=== PATIENT | female | born 1970 | race Caucasian/White ===

== ENCOUNTER 2017-03-10 03:48 | Emergency (ER) | payer OTHER ==
[~2017-03-10] VITALS: Ht 170.2 cm; Wt 81.8 kg
[2017-03-10 03:49] VITALS: BP 117/76; PULSE 85; RESP 16; O2SAT 98
--- NOTE | 2017-03-10 03:55 | ED.REPORT ---
HPI-Chest Pain 40 and Over Date of Service Mar 10, 2017 ED Provider: Mao Phillips MD Pt is a 46 year old female with a history of HTN and chronic hypokalemia who presents to the ED via EMS complaining of chest pressure onset 02:00 today while she was sleeping. She c/o associated burning sensation, malaise, left shoulder pain with numbness, and belching. Pt denies fever, chills, nausea, and vomiting. She denies a history of cardiac-associated symptoms. Pt reports that she is a non-smoker, drinks occasionally, and that she was at a fair today where she consumed an atypical meal for her including baked potato and meat. The pt states that her symptoms "feel like heartburn." Nursing Notes Stated Complaint: CHEST PAIN Chief Complaint: Chest Pain Nursing Notes Reviewed: Yes Allergies: Uncoded Allergies: PENICILLIN (Allergy, Mild, Rash, 03/10/17) General Time Seen by MD: 03:52 Chief Complaint Chest pressure Hx Obtained From: Patient, EMS Arrived By: Ambulance Sudden in Onset?: No Onset Occurred: 1 - 4 hours ago Symptom Duration: Since onset Location: : Substernal Quality: Pressure Radiation: : Shoulder left Severity: Current: Moderate Severity: Maximum: Moderate Recent Healthcare: No recent doctor visit, No recent hospitalization Similar Sx Previous: No Risk Factors )( CAD Risk Stratification Hypertension Risk factors reviewed )( TAD Risk Stratification Hypertension Risk factors reviewed )( PE Risk Stratification No risk factors HEART Score HEART for MACE: Low index of susp (0), Normal ECG (0), Age 45 - 65 (1), 1-2 CAD risk factors (1) HEART for MACE Score: 0-3 (low risk 0.9%-1.7%) Well's Criteria for PE Well's PE Score: 0-2 pts (low risk 3.6%) Past Medical History Past Medical History Chronic hypokalemia Reports: Hypertension Past Surgical History None reported Smoking History Unknown if Ever Smoker Social History Alcohol Use: "Social" Drug Use: Denies drug use Other Social History: Good social support, Ambulatory Status Independent Review of Systems Constitutional: Reports: Malaise, Denies: Chills, Fever Cardiovascular: Reports: Chest pain GI: Denies: Nausea, Vomiting Musculoskeletal: Reports: Extremity pain, Denies: Back pain, Neck pain Neurologic: Reports: Numbness (left arm) Complete sys rev & neg: except as marked. Physical Exam Initial Vital Signs Vital Signs (First) Date Time Temp Pulse Resp B/P Pulse Ox O2 Delivery O2 Flow Rate FiO2 03/10/17 03:49 36.6 85 16 117/76 98 Room Air Initial VS: Reviewed, Vital signs normal Head / Eyes: Atraumatic, Normocephalic Neck: Supple, Full range of motion Extremities: Vascular intact, Neuro intact Skin: Warm, Dry, No cyanosis Neurologic: Alert, Oriented, Nonfocal Psychiatric: Mood/affect normal, Behavior normal General/Constitutional: Awake, Alert Respiratory / Chest: Atraumatic, Breath sounds NL, Breath sounds = bilat Cardiovascular: Heart rate NL, Regular rhythm Heart Sounds / Murmur: Positive: Murmur present... (II/; left sternal border) No edema. Abdomen: Atraumatic, Soft, Non-tender Interpretation & Diagnostics Lab Results Interpretation Result Diagram: 03/10/17 0359 03/10/17 0359 Test 03/10/17 03:59 White Blood Count 8.9th/mm3 (3.8-10.1) Red Blood Count 4.73mil/mm3 (3.90-5.20) Hemoglobin 14.0g/dL (12.0-15.6) Hematocrit 41.1% (35.0-46.0) Mean Corpuscular Volume 87fL (81-100) Mean Corpuscular Hemoglobin 29.6pg (27.0-35.0) Mean Corpuscular Hemoglobin Concent 34.1% (32.0-37.0) Red Cell Distribution Width 13.0% (12.3-15.4) Platelet Count 414bil/L (150-400) Neutrophils (%) (Auto) 46.2% (40-74) Lymphocytes (%) (Auto) 42.8% (14-46) Monocytes (%) (Auto) 7% (4-12) Eosinophils (%) (Auto) 2.7% (0-5) Basophils (%) (Auto) 1% (0-3) Sodium Level 143mEq/L (134-144) Potassium Level 3.6mEq/L (3.5-5.2) Chloride Level 98mEq/L (97-108) Carbon Dioxide Level 27mmol/L (18-29) Blood Urea Nitrogen 12mg/dL (6-24) Creatinine 0.76mg/dL (0.57-1.00) Estimat Glomerular Filtration Rate 116mL/min (>59) Glucose Level 127mg/dL (60-99) Calcium Level 9.4mg/dL (8.5-10.1) Magnesium Level 1.8mg/dL (1.6-2.6) Total Bilirubin 0.3mg/dL (0.0-1.2) Aspartate Amino Transf (AST/SGOT) 44U/L (0-50) Alanine Aminotransferase (ALT/SGPT) 60U/L (0-32) Alkaline Phosphatase 65U/L (25-150) Troponin T 0.010ug/L (0.0-0.011) Total Protein 7.2g/dL (6.4-8.4) Albumin 4.2g/dL (3.4-5.0) Lab Results Interpretation: Initial troponin negative. Mild elevation of nonfasting glucose. ECG Interpretation ECG Interpretation: Sinus rhythm with a rate of 90 Time: 03:59 Interpreted by: ED physician X-Ray Chest Interpretation Chest Xray Interpretation: Negative View: Portable, 1 view Interpretation / Wet Read by: Wet read ED physician Re-Eval/Medical Decision Med Decision/Clinical Course 46-year-old female who presents with chest discomfort. She is low risk for serious cardiopulmonary disease. Her initial troponin is negative. She is currently awaiting a repeat troponin and EKG. Plan for discharge in anticipation of normal troponin and EKG. Dr. Pyle will reevaluate this is situation if either of these tests are abnormal. Source of Hx: Old records Counseled Regarding: Diagnosis, Lab results Discharge & Departure Primary Impression: Chest pain with low risk for cardiac etiology Disposition: Home Discharge Condition All VS Reviewed: Yes Condition: Stable Patient Instructions: Chest Pain (ED) Additional Instructions: Your situation is low risk for serious heart or lung disease. Testing here in the emergency room has been negative. I suspect the your pain is related to gastroesophageal reflux disease (GERD). Recommend Prilosec or similar over-the- counter acid darwin. I will up with your regular doctor as needed. Referrals: Rebecca Field MD Scribe Attestation Portions of this note were transcribed by Dana Jesus. I, Dr. Phillips personally performed the history, physical exam and medical decision-making; I reviewed and confirmed the accuracy of the information in the transcribed note. Signed by: Mili Kennedy, 03/10/17. copies to: Rebecca Field MD, Mao Hernandez MD Mar 10, 2017 03:55 Dana Torres Mar 10, 2017 04:04
[2017-03-10 04:18] LABS: BASOPHILS % (AUTO) 1 % (0-3); EOSINOPHILS % (AUTO) 2.7 % (0-5); MONOCYTES % (AUTO) 7 % (4-12); Mean Corpuscular Hemoglobin 29.6 pg (27.0-35.0); Mean Corpuscular Volume 87 fL (81-100); NEUTROPHILS % (AUTO) 46.2 % (40-74); Platelet Count 414 bil/L (150-400)
[2017-03-10 04:34] LABS: TROPONIN T 0.01 ug/L (0.0-0.011)
[2017-03-10 04:45] VITALS: BP 112/63; PULSE 81; RESP 20; O2SAT 95
[2017-03-10 04:45] LABS: Magnesium 1.8 mg/dL (1.6-2.6)
[2017-03-10 05:30] VITALS: BP 117/48; PULSE 81; RESP 23; O2SAT 95
[2017-03-10 06:26] VITALS: BP 114/65; PULSE 78; RESP 23; O2SAT 93
[2017-03-10 07:22] VITALS: BP 124/73; PULSE 86; RESP 16; O2SAT 96
--- NOTE | 2017-03-10 14:23 | DRSVH ---
PROCEDURE: X-RAY CHEST ONE VIEW, PORTABLE ([id number]) INDICATIONS: cp TECHNIQUE: One view of the chest was acquired. COMPARISON: None. FINDINGS: Surgical changes and devices: None. Lungs and pleura: No pleural effusions or pneumothorax. Lungs are clear. Mediastinum: Mediastinal contours appear normal. Heart size is normal. Bones and chest wall: No suspicious bony lesions. Overlying soft tissues appear unremarkable. IMPRESSION: No acute cardiopulmonary disease. Dictated by: James Gilliland [facility] Interpreted: Gerry Sexton MD on 03/10/2017 at 8:51 Approved by: Gerry Sexton M.D. on 03/10/2017 at 14:22
== END 2017-03-10 07:26 | disposition home or self-care (01) ==
LOC: EDBD 03:48 → SED 03:48
DX: R07.89 Other chest pain (principal); I10 Essential (primary) hypertension; Z88.0 Allergy status to penicillin